=== PATIENT | female | born 2000 | race Two or more races ===

== ENCOUNTER 2021-10-15 10:00 | Inpatient (IN) | payer OTHER ==
[2021-10-15] MEDS ORDERED: ONDANSETRON 4 MG/2 ML VIAL IVPUSH PRN (11:21)
[2021-10-15] MEDS ORDERED: ACETAMINOPHEN 325 MG TABLET (FP) PO PRN (11:21)
[2021-10-15] MEDS ORDERED: morphine SULFATE/PF 1 MG/2 ML (2cc Syringe - QUVA) EP ONE (11:21)
[2021-10-15] MEDS ORDERED: OXYTOCIN 20 UNITS in 0.9% NS 20 UNIT/1,000 ML INFUS.BAG IV ONE ×2 (11:49→15:45)
[2021-10-15] MEDS ORDERED: SODIUM CHLORIDE 0.9% P/F 10 ML VIAL IJ ONE (11:51)
[2021-10-15] MEDS ORDERED: ceFAZolin SODIUM 1 GM VIAL ONE ×2 (11:51→21:34)
[2021-10-15 11:52] VITALS: BMI 35.5
[2021-10-15] MEDS ORDERED: OXYTOCIN 10 UNITS/ML VIAL ONE ×2 (11:53→12:59)
[2021-10-15] MEDS ORDERED: PROPOFOL 20 ML ONE (11:53)
[2021-10-15] MEDS ORDERED: ONDANSETRON 4 MG/2 ML VIAL ONE (13:04)
[2021-10-15] MEDS ORDERED: KETOROLAC TROMETHAMINE 30 MG/1 ML VIAL ONE (13:04)
[2021-10-15] MEDS ORDERED: SENNOSIDES/DOCUSATE COMBO (SENNA PLUS) TABLET (UD) PO PRN (14:10)
[2021-10-15] MEDS ORDERED: ONDANSETRON 4 MG/2 ML VIAL IVPB PRN (14:10)
[2021-10-15] MEDS ORDERED: ELECTROLYTE-148 SOLN 1,000 ML IV SCH (14:15)
[2021-10-15] MEDS ORDERED: OXYTOCIN 20 UNITS in 0.9% NS 20 UNIT/1,000 ML INFUS.BAG IV SCH (14:15)
[2021-10-15] MEDS ORDERED: CITRIC ACID/SODIUM CITRATE 30 ML UNIT-DOSE CUP PO ONE (14:17)
[2021-10-15 14:29] LABS: CORD HCO3 20.5 mmHg (20-29); CORD pH 7.026 (7.14-7.44)
[2021-10-15 14:32] LABS: CORD BASE EXCESS -6.5 mmol/L (0-2); CORD HCO3 21.6 mmHg (20-29); CORD PCO2 55.7 mmHg (30-78); CORD pH 7.207 (7.14-7.44)
[2021-10-15] MEDS ORDERED: CEFAZOLIN 1 GM/D5W 1 GM/50 ML BAG IVPB SCH (21:00)
[2021-10-15] MEDS ORDERED: DEXTROSE 5%-WATER - 50 ML IVPB ONE (21:33)
[2021-10-15] MEDS: CEFAZOLIN 1 GM in DEXTROSE 5%-WATER - 50 ML IVPB SCH (21:41)
[2021-10-16] MEDS ORDERED: DEXTROSE 5%-WATER - 50 ML IVPB ONE (05:19)
[2021-10-16] MEDS ORDERED: ceFAZolin SODIUM 1 GM VIAL ONE (05:19)
[2021-10-16] MEDS: CEFAZOLIN 1 GM in DEXTROSE 5%-WATER - 50 ML IVPB SCH (05:23)
[2021-10-16] MEDS: IBUPROFEN 600 MG TABLET (FP) PO PRN ×2 (05:44→18:43)
[2021-10-16] MEDS: SIMETHICONE 80 MG TAB.CHEW (FP) PO PRN ×2 (05:45→22:25)
[2021-10-16 06:12] LABS: BASO % 0.3 % (0-2.0); EOS % 0.1 % (0-4.5); HEMATOCRIT 32.3 % (32.4-45.2); HEMOGLOBIN 10.6 GM/dL (10.7-15.3); LYMPH % 12.8 % (8-40); MCH 29.6 pg (25.7-33.7); MCHC 32.9 g/dl (32.0-36.0); MEAN CELL VOLUME 90.2 fl (80-96); MEAN PLT VOLUME 9.5 fl (7.5-11.1); MONO % 6.9 % (3.8-10.2); NEUT % 79.9 % (42.8-82.8); PLATELET COUNT 240 10^3/uL (134-434); RBC 3.58 M/mm3 (3.60-5.2); RDW 13.3 % (11.6-15.6); WHITE BLOOD COUNT 12.4 K/mm3 (4.0-10.0)
[2021-10-16] MEDS: PRENATAL VITAMINS W/ FOLIC ACID TABLET (FP) PO SCH (09:43)
[2021-10-16] MEDS ORDERED: BISACODYL 10 MG SUPP.RECT RC PRN (14:10)
[2021-10-16] MEDS: ACETAMINOPHEN 500 MG TABLET (FP) PO SCH ×2 (14:42→22:26)
[2021-10-17] MEDS: SIMETHICONE 80 MG TAB.CHEW (FP) PO PRN (06:14)
[2021-10-17] MEDS: ACETAMINOPHEN 500 MG TABLET (FP) PO SCH (06:14)
[2021-10-17] MEDS: PRENATAL VITAMINS W/ FOLIC ACID TABLET (FP) PO SCH (09:06)
[2021-10-17 09:43] VITALS: BP 106/62; PULSE 83; TEMP 97.7
== END 2021-10-17 14:00 | disposition home or self-care (01) | DRG 540 ==
LOC: JLDR 10:00 → J3W 16:05
PROVIDERS: ADMIT Family Medicine; ATTEND Family Medicine
PROC: 10D00Z1 Extraction of Products of Conception, Low, Open Approach (ICD-10-PCS; principal; 2021-10-15)
DX: O48.0 Post-term pregnancy (principal); O34.219 Maternal care for unspecified type scar from previous cesarean delivery; Z3A.40 40 weeks gestation of pregnancy; Z37.0 Single live birth
CPT/HCPCS: 36415; 36600; 82803; 85025; 88307-TC